=== PATIENT | male | born 1995 | race Two or more races ===

== ENCOUNTER 2018-09-22 20:47 | Inpatient (IN) | payer SELFPAY ==
[~2018-09-22] VITALS: Ht 160 cm; Wt 101.6 kg
[2018-09-22] MEDS ORDERED: IBUPROFEN 200 MG TABLET. PO ONE (22:30)
[2018-09-22] MEDS ORDERED: ACETAMINOPHEN 500 MG TABLET PO ONE (22:30)
[2018-09-22] MEDS ORDERED: ALBUTEROL SULFATE 2.5 MG/3 ML NEBU. NEB ONE (22:30)
[2018-09-22] MEDS ORDERED: IV NORMAL SALINE 1000ML BAG 1,000 ML IV ONE (23:00)
[2018-09-22 23:33] LABS: BILIRUBIN,URINE NEGATIVE (NEG); CLARITY,URINE CLEAR; COLOR,URINE YELLOW; NITRITE,URINE NEGATIVE (NEG); PROTEIN,URINE NEGATIVE (NEG-TRACE); UROBILINOGEN,URINE 0.2 mg/dL (0.2 mg/dL)
[2018-09-22 23:35] LABS: BACTERIA,URINE 0 /HPF (0-FEW); RBC,URINE 0 /HPF (0-2); WBC,URINE 0 /HPF (0-4)
[2018-09-22 23:54] LABS: BASO # 0.1 x10^3/uL (0.0-0.2); BASO % 1 % (0-3); EOS # 0.6 x10^3/uL (0.0-0.7); EOS % 5 % (0-3); HEMATOCRIT 41.7 % (39.0-53.0); HEMOGLOBIN 14.2 g/dL (13.0-17.5); LYMPH # 2.3 x10^3/uL (1.0-4.8); LYMPH % 21 % (24-48); MEAN CORPUSCULAR HEMOGLOBIN 31 pg (25-35); MEAN CORPUSCULAR HGB CONC 34 g/dL (31-37); MEAN CORPUSCULAR VOLUME 90 fL (79-100); MONO # 0.6 x10^3/uL (0.0-1.1); MONO % 6 % (0-9); NEUT # 7.1 x10^3uL (1.8-7.7); NEUT % 67 % (31-73); PLATELET COUNT 135 x10^3/uL (140-400); RED BLOOD COUNT 4.64 x10^6/uL (4.30-5.70); RED CELL DISTRIBUTION WIDTH 12.9 % (11.5-14.5); WHITE BLOOD COUNT 10.7 x10^3/uL (4.0-11.0)
[2018-09-23] VITALS (7 sets, daily range): BP systolic 115–142; BP diastolic 58–83
[2018-09-23] MEDS ORDERED: cefTRIAXone IV Push 1 GM VIAL. IVP ONE
[2018-09-23] MEDS ORDERED: DOXYCYCLINE HYCLATE 100 MG in IV DEXTROSE 5% 100ML 100 ML IV ONE ×2
[2018-09-23 00:02] LABS: BARBITURATES NEG (NEG); BENZODIAZEPINES NEG (NEG); CANNABINOIDS NEG (NEG); COCAINE NEG (NEG); METHADONE NEG (NEG); OPIATES NEG (NEG); PHENCYCLIDINE NEG (NEG)
[2018-09-23 00:02] LABS: PROTHROMBIN TIME PATIENT 13.7 SEC (11.7-14.0)
[2018-09-23 00:03] LABS: CALCIUM 8.9 mg/dL (8.5-10.1); CREATININE 1.4 mg/dL (0.7-1.3); GFR 62.8; POTASSIUM 3.6 mmol/L (3.5-5.1)
--- NOTE | 2018-09-23 00:04 | PHYS DOC ---
Past Medical History Past Medical History: No Pertinent History (NAHUM NORIEGA APRN) Past Surgical History: No Surgical History (NAHUM NORIEGA APRN) Alcohol Use: None Drug Use: None (NAHUM NORIEGA APRN) Adult General Chief Complaint Chief Complaint: COUGH HPI HPI Patient is a 23 year old male who presents to the emergency Department today with complaints of a productive cough with yellow sputum, fever up to 100, and body aches for the last month. Patient states his symptoms have been worse over the last few days. He denies any nausea, vomiting, diarrhea, ear pain, sore throat, back pain, abdominal pain, or rash. Patient denies any recent travel. He reports shortness of breath with activity, he denies shortness of breath at rest. (NAHUM NORIEGA APRN) Review of Systems Review of Systems Constitutional: Fever and body aches Eyes: Denies change in visual acuity, redness, or eye pain [] HENT: Denies nasal congestion or sore throat [] Respiratory: See history of present illness Cardiovascular: No additional information not addressed in HPI [] GI: Denies abdominal pain, nausea, vomiting, or diarrhea [] : Denies dysuria or hematuria [] Musculoskeletal: Reports body aches Integument: Denies rash or skin lesions [] Neurologic: Denies headache, focal weakness or sensory changes [] Complete systems were reviewed and found to be within normal limits, except as documented in this note. (NAHUM NORIEGA APRN) Current Medications Current Medications Current Medications Medications (Trade) Dose Ordered Sig/Alfredo Start Time Stop Time Status Last Admin Dose Admin Acetaminophen (Tylenol) 1,000 mg 1X ONCE 09/22/18 22:30 09/22/18 22:31 DC 09/22/18 22:20 1,000 MG Albuterol Sulfate (Ventolin Neb Soln) 2.5 mg 1X ONCE 09/22/18 22:30 09/22/18 22:31 DC 09/22/18 22:34 2.5 MG Ibuprofen (Motrin) 600 mg 1X ONCE 09/22/18 22:30 09/22/18 22:31 DC 09/22/18 22:20 600 MG Sodium Chloride 1,000 ml @ 1,000 mls/hr 1X ONCE 09/22/18 23:00 09/22/18 23:59 DC 09/22/18 22:48 1,000 MLS/HR (PAULETTE MEDINA MD) Allergies Allergies Allergies Coded Allergies Type Severity Reaction Last Updated Verified No Known Drug Allergies 09/22/18 No (PAULETTE MEDINA MD) Physical Exam Physical Exam Constitutional: Well developed, well nourished, no acute distress, ill appearance HENT: Normocephalic, atraumatic, bilateral external ears normal, bilateral TMs normal, posterior pharynx normal, oropharynx moist, no oral exudates, nose normal. [] Eyes: PERRLA, conjunctiva normal, no discharge. [] Neck: Normal range of motion, no tenderness, supple, no stridor. [] Cardiovascular:Heart rate tachycardic rhythm, no murmur [] Lungs & Thorax: Bilateral breath sounds clear to auscultation in upper lobes, diminished in bases bilat, no retractions, non-tender [] Abdomen: soft, no tenderness, no masses, no pulsatile masses. [] Skin: Hot, Flushed, diaphoretic Extremities: No cyanosis, no clubbing, ROM intact, no edema. [] Neurologic: Alert and oriented X 3, no focal deficits noted. [] Psychologic: Affect normal, judgement normal, mood normal. [] (NAHUM NORIEGA APRN) Current Patient Data Vital Signs Vital Signs Date Time Temp Pulse Resp B/P (MAP) Pulse Ox O2 Delivery O2 Flow Rate FiO2 09/22/18 23:46 101.7 101.7 09/22/18 23:45 114 26 115/58 (77) 92 Room Air (PAULETTE MEDINA MD) Lab Values Laboratory Tests Test 09/22/18 21:00 09/22/18 21:15 Urine Collection Type Unknown Urine Color Yellow Urine Clarity Clear Urine pH 7.0 Urine Specific [place] 1.010 Urine Protein Negative mg/dL (NEG-TRACE) Urine Glucose (UA) Negative mg/dL (NEG) Urine Ketones (Stick) Negative mg/dL (NEG) Urine Blood Negative (NEG) Urine Nitrite Negative (NEG) Urine Bilirubin Negative (NEG) Urine Urobilinogen Dipstick 0.2 mg/dL (0.2 mg/dL) Urine Leukocyte Esterase Negative (NEG) Urine RBC 0 /HPF (0-2) Urine WBC 0 /HPF (0-4) Urine Bacteria 0 /HPF (0-FEW) Urine Opiates Screen Neg (NEG) Urine Methadone Screen Neg (NEG) Urine Barbiturates Neg (NEG) Urine Phencyclidine Screen Neg (NEG) Urine Amphetamine/Methamphetamine Neg (NEG) Urine Benzodiazepines Screen Neg (NEG) Urine Cocaine Screen Neg (NEG) Urine Cannabinoids Screen Neg (NEG) Urine Ethyl Alcohol Neg (NEG) White Blood Count 10.7 x10^3/uL (4.0-11.0) Red Blood Count 4.64 x10^6/uL (4.30-5.70) Hemoglobin 14.2 g/dL (13.0-17.5) Hematocrit 41.7 % (39.0-53.0) Mean Corpuscular Volume 90 fL (79-100) Mean Corpuscular Hemoglobin 31 pg (25-35) Mean Corpuscular Hemoglobin Concent 34 g/dL (31-37) Red Cell Distribution Width 12.9 % (11.5-14.5) Platelet Count 135 x10^3/uL (140-400) L Neutrophils (%) (Auto) 67 % (31-73) Lymphocytes (%) (Auto) 21 % (24-48) L Monocytes (%) (Auto) 6 % (0-9) Eosinophils (%) (Auto) 5 % (0-3) H Basophils (%) (Auto) 1 % (0-3) Neutrophils # (Auto) 7.1 x10^3uL (1.8-7.7) Lymphocytes # (Auto) 2.3 x10^3/uL (1.0-4.8) Monocytes # (Auto) 0.6 x10^3/uL (0.0-1.1) Eosinophils # (Auto) 0.6 x10^3/uL (0.0-0.7) Basophils # (Auto) 0.1 x10^3/uL (0.0-0.2) Platelet Estimate Decreased (ADEQUATE) Giant Platelets Occ Prothrombin Time 13.7 SEC (11.7-14.0) Prothrombin Time INR 1.1 (0.8-1.1) Sodium Level 140 mmol/L (136-145) Potassium Level 3.6 mmol/L (3.5-5.1) Chloride Level 103 mmol/L (98-107) Carbon Dioxide Level 26 mmol/L (21-32) Anion Gap 11 (6-14) Blood Urea Nitrogen 12 mg/dL (8-26) Creatinine 1.4 mg/dL (0.7-1.3) H Estimated GFR (Cockcroft-Gault) 62.8 BUN/Creatinine Ratio 9 (6-20) Glucose Level 109 mg/dL (70-99) H Calcium Level 8.9 mg/dL (8.5-10.1) Total Bilirubin 0.8 mg/dL (0.2-1.0) Aspartate Amino Transferase (AST) 19 U/L (15-37) Alanine Aminotransferase (ALT) 38 U/L (16-63) Alkaline Phosphatase 50 U/L (46-116) Total Protein 8.2 g/dL (6.4-8.2) Albumin 3.9 g/dL (3.4-5.0) Albumin/Globulin Ratio 0.9 (1.0-1.7) L Laboratory Tests 09/22/18 21:15 Laboratory Tests 09/22/18 21:15 (PAULETTE MEDINA MD) EKG EKG [] (NAHUM NORIEGA APRN) Radiology/Procedures Radiology/Procedures CXR no Acute findings probable left retrocardiac streakiness read by Dr. Medina (NAHUM NORIEGA APRN) Course & Med Decision Making Course & Med Decision Making Pertinent Labs and Imaging studies reviewed. (See chart for details) [] (NAHUM NORIEGA APRN) Course & Med Decision Making I saw and evaluated the patient, patient was mildly tachypneic heart rate was mostly in the 120s while in the emergency room he was getting IV fluids and Tylenol but he was remaining tachycardic she really looked dyspneic to me chest x-ray possible retrocardiac opacity. Patient was treated for pneumonia and given the tachypnea and tachycardia we opted to admit him to the hospitalist service for further evaluation and management. Patient denied any recent travel denied any history of IV drug use nevertheless hopefully with IV fluids and antibiotics to improve (PAULETTE MEDINA MD) Dragon Disclaimer Dragon Disclaimer This electronic medical record was generated, in whole or in part, using a voice recognition dictation system. (NAHUM NORIEGA APRN) Departure Departure Impression: Primary Impression: Pneumonia Disposition: ADMITTED INPATIENT Admitting Physician: LOYD (PAULETTE MEDINA MD) Condition: STABLE Referrals: NO PCP (PCP) NAHUM NORIEGA APRN Sep 23, 2018 00:04 PAULETTE MEDINA MD Sep 23, 2018 01:48
[2018-09-23 00:08] LABS: AMPHETAMINE/METHAMPHETAMINE NEG (NEG)
[2018-09-23 00:09] LABS: ALBUMIN 3.9 g/dL (3.4-5.0); ALBUMIN/GLOBULIN RATIO 0.9 (1.0-1.7); TOTAL BILIRUBIN 0.8 mg/dL (0.2-1.0); TOTAL PROTEIN 8.2 g/dL (6.4-8.2)
[2018-09-23] MEDS ORDERED: IV NORMAL SALINE 1000ML BAG 1,000 ML IV SCH ×2 (00:15)
[2018-09-23 00:46] LABS: PLT ESTIMATE DECREASED (ADEQUATE)
--- NOTE | 2018-09-23 01:04 | NUR ---
The patient, ОЛЬГА CROOKS, 23 y/o, M admitted by EDELMIRA FRITZ MD, was given written information regarding hospital policies, unit procedures and contact persons. Valuables were checked and left with the patient.
[2018-09-23] MEDS: ACETAMINOPHEN 325 MG TABLET. PO PRN ×2 (01:51→13:58)
--- NOTE | 2018-09-23 05:54 | RAD ---
Chest radiograph 09/22/2018 8:55 PM INDICATION: Fever COMPARISON: None available TECHNIQUE: Portable upright frontal view of the chest is provided. FINDINGS: The cardiomediastinal silhouette is within normal limits. There are no pleural effusions. There is no pulmonary vascular congestion. There is no pneumothorax. Patchy interstitial opacities are noted within the suprahilar region bilaterally. No significant osseous abnormality is identified. IMPRESSION: Bilateral suprahilar patchy interstitial changes may reflect interstitial pneumonitis. Electronically signed by: Gala Cr MD (09/23/2018 5:51 AM) [facility]
--- NOTE | 2018-09-23 11:42 | PDOC1 ---
History and Physical Date of Admission Date of Admission DATE: 09/23/18 TIME: 11:42 Identification/Chief Complaint Chief Complaint seen in er , 23 year old male who presents to the emergency Department with complaints of a productive cough with yellow sputum, fever up to 100, and body aches for the last month. Patient states his symptoms have been worse over the last few days. He denies any nausea, vomiting, diarrhea, ear pain, Past Medical History Cardiovascular: No pertinent hx Pulmonary: No pertinent hx GI: No pertinent hx Family History Family History: Hypertension Social History Smoke: <1 pack per day ALCOHOL: occassional Drugs: None Current Medications Current Medications Current Medications Acetaminophen (Tylenol) 1,000 mg 1X ONCE PO Last administered on 09/22/18at 22:20; Start 09/22/18 at 22:30; Stop 09/22/18 at 22:31; Status DC Albuterol Sulfate (Ventolin Neb Soln) 2.5 mg 1X ONCE NEB Last administered on 09/22/18at 22:34; Start 09/22/18 at 22:30; Stop 09/22/18 at 22:31; Status DC Ibuprofen (Motrin) 600 mg 1X ONCE PO Last administered on 09/22/18at 22:20; Start 09/22/18 at 22:30; Stop 09/22/18 at 22:31; Status DC Sodium Chloride 1,000 ml @ 1,000 mls/hr 1X ONCE IV Last administered on 09/22/18at 22:48; Start 09/22/18 at 23:00; Stop 09/22/18 at 23:59; Status DC Sodium Chloride 1,000 ml @ 1,000 mls/hr Q1H IV Last administered on 09/23/18at 00:15; Start 09/23/18 at 00:00; Stop 09/23/18 at 01:41; Status DC Ceftriaxone Sodium (Rocephin) 1 gm 1X ONCE IVP Last administered on 09/22/18at 23:56; Start 09/23/18 at 00:00; Stop 09/23/18 at 00:01; Status DC Doxycycline Hyclate 100 mg/ Dextrose 100 ml @ 50 mls/hr 1X ONCE IV Last administered on 09/23/18at 00:01; Start 09/23/18 at 00:00; Stop 09/23/18 at 01:59; Status DC Sodium Chloride 1,000 ml @ 125 mls/hr Q8H IV Last administered on 09/23/18at 01:51; Start 09/23/18 at 00:15; Stop 09/23/18 at 00:16; Status DC Acetaminophen (Tylenol) 650 mg PRN Q4HRS PRN PO FEVER Last administered on 09/23/18at 01:51; Start 09/23/18 at 00:00; Stop 09/23/18 at 23:59 Allergies Allergies: Coded Allergies: No Known Drug Allergies (Unverified , 09/22/18) ROS Review of System Review of Systems Review of Systems Constitutional: Fever and body aches Eyes: Denies change in visual acuity, redness, or eye pain [] HENT: Denies nasal congestion or sore throat [] Respiratory: See history of present illness Cardiovascular: No additional information not addressed in HPI [] GI: Denies abdominal pain, nausea, vomiting, or diarrhea [] : Denies dysuria or hematuria [] Musculoskeletal: Reports body aches Integument: Denies rash or skin lesions [] Neurologic: Denies headache, focal weakness or sensory changes [] 14 pt systems were reviewed and found to be within normal limits, except as documented . General: YES: Chills, Fatigue Gastrointestinal: No Nausea, No Vomiting, No Abdominal Pain, No Diarrhea, No Constipation, No Melena, No Hematochezia, No Other Musculoskeletal: No Gait Disturbance, No Joint Pain, No Joint Stiffness, No Joint Swelling, No Muscle Pain, No Muscular Weakness, No Pain In:, No Swelling In:, No Other Physical Exam Physical Exam Physical Exam Physical Exam Constitutional: Well developed, well nourished, no acute distress, ill appearance HENT: Normocephalic, atraumatic, bilateral external ears normal, bilateral TMs normal, posterior pharynx normal, oropharynx moist, no oral exudates, nose normal. [] Eyes: PERRLA, conjunctiva normal, no discharge. [] Neck: Normal range of motion, no tenderness, supple, no stridor. [] Cardiovascular:Heart rate tachycardic rhythm, no murmur [] Lungs & Thorax: Bilateral breath sounds clear to auscultation in upper lobes, diminished in bases bilat, no retractions, non-tender [] Abdomen: soft, no tenderness, no masses, no pulsatile masses. [] Skin: Hot, Flushed, diaphoretic Extremities: No cyanosis, no clubbing, ROM intact, no edema. [] Neurologic: Alert and oriented X 3, no focal deficits noted. [] Psychologic: Affect normal, judgement normal, mood normal. [] General: Alert, Oriented X3, Cooperative, mild distress HEENT: EOMI, Mucous membr. moist/pink Heart: S1S2, RRR, no thrills, no gallops, no murmurs Abdomen: Normal bowel sounds, Soft Rectal Exam: not examined PELVIC: Examination not indicated Extremities: No cyanosis Neuro: Normal speech, Cranial nerves 3-12 NL Psych/Mental Status: Mental status NL, Mood NL Vitals Vitals Vital Signs Date Time Temp Pulse Resp B/P (MAP) Pulse Ox O2 Delivery O2 Flow Rate FiO2 09/23/18 08:00 Room Air 09/23/18 07:00 96.8 71 18 127/81 (96) 93 96.8 Labs Labs Laboratory Tests Test 09/22/18 21:00 09/22/18 21:15 09/22/18 23:55 Urine Collection Type Unknown Urine Color Yellow Urine Clarity Clear Urine pH 7.0 Urine Specific [place] 1.010 Urine Protein Negative mg/dL (NEG-TRACE) Urine Glucose (UA) Negative mg/dL (NEG) Urine Ketones (Stick) Negative mg/dL (NEG) Urine Blood Negative (NEG) Urine Nitrite Negative (NEG) Urine Bilirubin Negative (NEG) Urine Urobilinogen Dipstick 0.2 mg/dL (0.2 mg/dL) Urine Leukocyte Esterase Negative (NEG) Urine RBC 0 /HPF (0-2) Urine WBC 0 /HPF (0-4) Urine Bacteria 0 /HPF (0-FEW) Urine Opiates Screen Neg (NEG) Urine Methadone Screen Neg (NEG) Urine Barbiturates Neg (NEG) Urine Phencyclidine Screen Neg (NEG) Urine Amphetamine/Methamphetamine Neg (NEG) Urine Benzodiazepines Screen Neg (NEG) Urine Cocaine Screen Neg (NEG) Urine Cannabinoids Screen Neg (NEG) Urine Ethyl Alcohol Neg (NEG) White Blood Count 10.7 x10^3/uL (4.0-11.0) Red Blood Count 4.64 x10^6/uL (4.30-5.70) Hemoglobin 14.2 g/dL (13.0-17.5) Hematocrit 41.7 % (39.0-53.0) Mean Corpuscular Volume 90 fL (79-100) Mean Corpuscular Hemoglobin 31 pg (25-35) Mean Corpuscular Hemoglobin Concent 34 g/dL (31-37) Red Cell Distribution Width 12.9 % (11.5-14.5) Platelet Count 135 x10^3/uL (140-400) Neutrophils (%) (Auto) 67 % (31-73) Lymphocytes (%) (Auto) 21 % (24-48) Monocytes (%) (Auto) 6 % (0-9) Eosinophils (%) (Auto) 5 % (0-3) Basophils (%) (Auto) 1 % (0-3) Neutrophils # (Auto) 7.1 x10^3uL (1.8-7.7) Lymphocytes # (Auto) 2.3 x10^3/uL (1.0-4.8) Monocytes # (Auto) 0.6 x10^3/uL (0.0-1.1) Eosinophils # (Auto) 0.6 x10^3/uL (0.0-0.7) Basophils # (Auto) 0.1 x10^3/uL (0.0-0.2) Platelet Estimate Decreased (ADEQUATE) Giant Platelets Occ Prothrombin Time 13.7 SEC (11.7-14.0) Prothromb Time International Ratio 1.1 (0.8-1.1) Sodium Level 140 mmol/L (136-145) Potassium Level 3.6 mmol/L (3.5-5.1) Chloride Level 103 mmol/L (98-107) Carbon Dioxide Level 26 mmol/L (21-32) Anion Gap 11 (6-14) Blood Urea Nitrogen 12 mg/dL (8-26) Creatinine 1.4 mg/dL (0.7-1.3) Estimated GFR (Cockcroft-Gault) 62.8 BUN/Creatinine Ratio 9 (6-20) Glucose Level 109 mg/dL (70-99) Calcium Level 8.9 mg/dL (8.5-10.1) Total Bilirubin 0.8 mg/dL (0.2-1.0) Aspartate Amino Transf (AST/SGOT) 19 U/L (15-37) Alanine Aminotransferase (ALT/SGPT) 38 U/L (16-63) Alkaline Phosphatase 50 U/L (46-116) Total Protein 8.2 g/dL (6.4-8.2) Albumin 3.9 g/dL (3.4-5.0) Albumin/Globulin Ratio 0.9 (1.0-1.7) Lactic Acid Level 1.2 mmol/L (0.4-2.0) Laboratory Tests Test 09/22/18 21:00 09/22/18 21:15 09/22/18 23:55 Urine Collection Type Unknown Urine Color Yellow Urine Clarity Clear Urine pH 7.0 Urine Specific [place] 1.010 Urine Protein Negative mg/dL (NEG-TRACE) Urine Glucose (UA) Negative mg/dL (NEG) Urine Ketones (Stick) Negative mg/dL (NEG) Urine Blood Negative (NEG) Urine Nitrite Negative (NEG) Urine Bilirubin Negative (NEG) Urine Urobilinogen Dipstick 0.2 mg/dL (0.2 mg/dL) Urine Leukocyte Esterase Negative (NEG) Urine RBC 0 /HPF (0-2) Urine WBC 0 /HPF (0-4) Urine Bacteria 0 /HPF (0-FEW) Urine Opiates Screen Neg (NEG) Urine Methadone Screen Neg (NEG) Urine Barbiturates Neg (NEG) Urine Phencyclidine Screen Neg (NEG) Urine Amphetamine/Methamphetamine Neg (NEG) Urine Benzodiazepines Screen Neg (NEG) Urine Cocaine Screen Neg (NEG) Urine Cannabinoids Screen Neg (NEG) Urine Ethyl Alcohol Neg (NEG) White Blood Count 10.7 x10^3/uL (4.0-11.0) Red Blood Count 4.64 x10^6/uL (4.30-5.70) Hemoglobin 14.2 g/dL (13.0-17.5) Hematocrit 41.7 % (39.0-53.0) Mean Corpuscular Volume 90 fL (79-100) Mean Corpuscular Hemoglobin 31 pg (25-35) Mean Corpuscular Hemoglobin Concent 34 g/dL (31-37) Red Cell Distribution Width 12.9 % (11.5-14.5) Platelet Count 135 x10^3/uL (140-400) Neutrophils (%) (Auto) 67 % (31-73) Lymphocytes (%) (Auto) 21 % (24-48) Monocytes (%) (Auto) 6 % (0-9) Eosinophils (%) (Auto) 5 % (0-3) Basophils (%) (Auto) 1 % (0-3) Neutrophils # (Auto) 7.1 x10^3uL (1.8-7.7) Lymphocytes # (Auto) 2.3 x10^3/uL (1.0-4.8) Monocytes # (Auto) 0.6 x10^3/uL (0.0-1.1) Eosinophils # (Auto) 0.6 x10^3/uL (0.0-0.7) Basophils # (Auto) 0.1 x10^3/uL (0.0-0.2) Platelet Estimate Decreased (ADEQUATE) Giant Platelets Occ Prothrombin Time 13.7 SEC (11.7-14.0) Prothromb Time International Ratio 1.1 (0.8-1.1) Sodium Level 140 mmol/L (136-145) Potassium Level 3.6 mmol/L (3.5-5.1) Chloride Level 103 mmol/L (98-107) Carbon Dioxide Level 26 mmol/L (21-32) Anion Gap 11 (6-14) Blood Urea Nitrogen 12 mg/dL (8-26) Creatinine 1.4 mg/dL (0.7-1.3) Estimated GFR (Cockcroft-Gault) 62.8 BUN/Creatinine Ratio 9 (6-20) Glucose Level 109 mg/dL (70-99) Calcium Level 8.9 mg/dL (8.5-10.1) Total Bilirubin 0.8 mg/dL (0.2-1.0) Aspartate Amino Transf (AST/SGOT) 19 U/L (15-37) Alanine Aminotransferase (ALT/SGPT) 38 U/L (16-63) Alkaline Phosphatase 50 U/L (46-116) Total Protein 8.2 g/dL (6.4-8.2) Albumin 3.9 g/dL (3.4-5.0) Albumin/Globulin Ratio 0.9 (1.0-1.7) Lactic Acid Level 1.2 mmol/L (0.4-2.0) Images Images Chest radiograph 09/22/2018 8:55 PM INDICATION: Fever COMPARISON: None available TECHNIQUE: Portable upright frontal view of the chest is provided. FINDINGS: The cardiomediastinal silhouette is within normal limits. There are no pleural effusions. There is no pulmonary vascular congestion. There is no pneumothorax. Patchy interstitial opacities are noted within the suprahilar region bilaterally. No significant osseous abnormality is identified. IMPRESSION: Bilateral suprahilar patchy interstitial changes may reflect interstitial pneumonitis. Electronically signed by: Елена Cr MD (09/23/2018 5:51 AM) [facility] DICTATED and SIGNED BY: ЕЛЕНА CR MD DATE: 09/23/18 0551 VTE Prophylaxis Ordered VTE Prophylaxis Devices: Yes VTE Pharmacological Prophylaxi: Yes Assessment/Plan Assessment/Plan IMPRESSION: Bilateral suprahilar patchy interstitial changes may reflect interstitial pneumonitis community acquired pneumonia. fever sepsis plan admit blood cultures emperic iv antibiotics urine for strep pneumo ag dvt prophylaxis puml consult iv zosyn doxy 100mg po bid 58 min pt exam, chart review, > 50% of time spent with exam, chart review, pt care coordination, disease process education EDELMIRA FRITZ MD Sep 23, 2018 11:42
[2018-09-23] MEDS ORDERED: IPRATRPIUM/ALBUTEROL 0.5/2.5MG 3 ML NEBU. NEB ONE (12:45)
[2018-09-23] MEDS: guaiFENesin/CODEINE 100mg/10mg 5 ML LIQUID PO PRN ×2 (13:59→21:54)
[2018-09-23] MEDS: IPRATRPIUM/ALBUTEROL 0.5/2.5MG 3 ML NEBU. NEB SCH ×2 (14:34→20:41)
[2018-09-23] MEDS ORDERED: LORazepam 0.5 MG TABLET PO PRN (15:15)
[2018-09-23] MEDS ORDERED: ALBUTEROL SULFATE 2.5 MG/3 ML NEBU. NEB PRN (15:15)
[2018-09-23] MEDS ORDERED: ACETAMINOPHEN 325 MG TABLET. PO PRN (15:15)
[2018-09-23] MEDS ORDERED: guaiFENesin ORAL 200 MG/10 ML LIQUID. PO PRN (15:15)
[2018-09-23] MEDS ORDERED: DOCUSATE SODIUM 100 MG CAPSULE. PO PRN (15:15)
[2018-09-23] MEDS ORDERED: ZOLPIDEM 5 MG TABLET. PO PRN (15:15)
[2018-09-23] MEDS ORDERED: 0.9 % SODIUM CHLORIDE 10 ML DISP.SYRIN. IV PRN (15:15)
[2018-09-23] MEDS ORDERED: ONDANSETRON PF 4 MG/2 ML VIAL. IV PRN (15:15)
[2018-09-23] MEDS ORDERED: MAG HYDROX/ALUMINUM HYD/SIMETH 30 ML ORAL.SUSP PO PRN (15:15)
[2018-09-23] MEDS ORDERED: cloNIDine HCL 0.1 MG TABLET PO PRN (15:15)
[2018-09-23] MEDS: PIPERACILLIN/TAZOBACTAM 3.375 GM in IV NORMAL SALINE 50ML 50 ML IV SCH (15:57)
[2018-09-23] MEDS ORDERED: ENOXAPARIN 40 MG/0.4 ML SYRINGE. SQ SCH (16:00)
--- NOTE | 2018-09-23 16:37 | PDOC2 ---
Pulmonary Consult. Reason for Consult/Chief Com: Interim Pulmonary Consult: Full consult dictated. IMP:1. Acute Pneumonia (likely "atypical' such as mycoplasma, primary immune disorder of eosinophilia and infiltrates (such as eosinophilic pneumonia) less likely) 2. Atopic disease with bronchospasm Agree with present antibiotics (emili. doxy) and inhaled bronchodilators W/U for atypical pneumonias and immune disorder only if he fails to respond PE: Vital Signs Date Time Temp Pulse Resp B/P (MAP) Pulse Ox O2 Delivery O2 Flow Rate FiO2 09/23/18 14:36 96 Room Air 09/23/18 14:00 101.5 101.5 09/23/18 11:00 80 16 125/83 (97) LEIGH TORREZ MD Sep 23, 2018 16:37
--- NOTE | 2018-09-23 16:55 | CONS ---
DATE OF CONSULTATION: HISTORY OF PRESENT ILLNESS: The patient is a 23-year-old male who is admitted through the Emergency Department for pneumonia. The patient notes that he does have a background of seasonal rhinitis and coughing if he is in [place] environments. He has never been diagnosed with any atopic disease. This has not been severe. He was in his usual state of health until approximately one month ago. He notes that over the past month, he has had episodic, subjective fevers and fatigue. These would last for a couple of days to be followed by feeling normal for a few days. He has felt particularly bad for the past several days. He has the subjective fevers. He has developed a cough productive of clear or yellow sputum. He also has generalized body aches during this time. PAST MEDICAL HISTORY: Negative. He has never been hospitalized or taken medications chronically. FAMILY HISTORY: Negative for pulmonary disease. SOCIAL HISTORY: He does have a modest tobacco smoke exposure history, but quit smoking three years ago. He works for [employer]. He has recently moved to [place], [place] from [place], [place]. REVIEW OF SYSTEMS: A 12-point review of systems was obtained. He does note that he occasionally coughs so hard that he will throw up. Otherwise, his 12-point review of systems was negative. PHYSICAL EXAMINATION: VITAL SIGNS: He has a temperature of 101.5. His heart rate is 80 per minute and regular. His oxygen saturation is 96% on room air at rest. His respiratory rate is 18 per minute and nonlabored. HEENT: Unremarkable. NECK: There is no JVD or lymphadenopathy. CHEST: He does have equal breath sounds. He does have bilateral rales throughout the lungs. He also has scattered wheezing. CARDIOVASCULAR: He has a regular rate and rhythm without murmur or gallop. ABDOMEN: Soft, without masses or organomegaly. EXTREMITIES: There is no cyanosis, clubbing or edema. NEUROLOGIC: He is alert, oriented and appropriate. Cranial nerves, motor, and coordination are all grossly intact. LABORATORY DATA: He has a chest x-ray that was done today that reveals a subtle, bilateral infiltrate. His CBC was remarkable for a white count that was elevated at 10,700. Of note, he had elevated eosinophils at 5%. IMPRESSION: Fever, bilateral infiltrates and cough, most consistent with community-acquired pneumonia. In particular, the diffuse infiltrates and given his age, I would be concerned about "atypical" pneumonias such as mycoplasma. I do believe that this is complicated by an atopic picture causing his bronchospasm and eosinophilia. I believe that a primary immune related disorder, such as eosinophilic pneumonia or Churg-Morris vasculitis, is far less likely, but not impossible. If he does not respond to the therapy below, it would be worth reconsidering diseases that cause infiltrates and eosinophilia. PLAN: I agree with his antibiotics, especially the doxycycline. I would not recommend specific tests for mycoplasma at this point in time as he should respond to doxycycline. Obviously, if he does not respond, one would readdress the diagnostic studies. I agree with the inhaled bronchodilators provided to him. I suspect he will get symptomatic relief with those. Once again, I expect the patient to respond to the therapy that has been started, but we will follow along with you to make sure. Thank you for referring this nice gentleman to us. If you have questions, please do not hesitate to contact me. LEIGH TORREZ MD DR: PREETHI/bhanu JOB#: [id number] / [id number]
[2018-09-23] MEDS: LACTOBACILLUS RHAMNOSUS GG 1 CAPSULE. PO SCH (21:53)
[2018-09-23] MEDS: DOXYCYCLINE HYCLATE 100 MG TABLET PO SCH (21:53)
[2018-09-24] MEDS: PIPERACILLIN/TAZOBACTAM 3.375 GM in IV NORMAL SALINE 50ML 50 ML IV SCH ×3 (00:25→12:47)
[2018-09-24 03:00] VITALS: BP 129/85
[2018-09-24] MEDS: IPRATRPIUM/ALBUTEROL 0.5/2.5MG 3 ML NEBU. NEB SCH ×2 (06:19→11:00)
[2018-09-24 07:00] VITALS: BP 119/61
[2018-09-24] MEDS: LACTOBACILLUS RHAMNOSUS GG 1 CAPSULE. PO SCH (09:13)
[2018-09-24] MEDS: DOXYCYCLINE HYCLATE 100 MG TABLET PO SCH (09:13)
--- NOTE | 2018-09-24 09:13 | PDOC ---
PULMONARY PROGRESS NOTES Vitals Vital Signs Date Time Temp Pulse Resp B/P (MAP) Pulse Ox O2 Delivery O2 Flow Rate FiO2 09/24/18 07:00 98.3 67 16 119/61 (80) 100 Room Air 98.3 Labs Laboratory Tests Test 09/22/18 21:00 09/22/18 21:15 09/22/18 23:55 09/23/18 18:00 Urine Collection Type Unknown Urine Color Yellow Urine Clarity Clear Urine pH 7.0 Urine Specific [place] 1.010 Urine Protein Negative mg/dL (NEG-TRACE) Urine Glucose (UA) Negative mg/dL (NEG) Urine Ketones (Stick) Negative mg/dL (NEG) Urine Blood Negative (NEG) Urine Nitrite Negative (NEG) Urine Bilirubin Negative (NEG) Urine Urobilinogen Dipstick 0.2 mg/dL (0.2 mg/dL) Urine Leukocyte Esterase Negative (NEG) Urine RBC 0 /HPF (0-2) Urine WBC 0 /HPF (0-4) Urine Bacteria 0 /HPF (0-FEW) Urine Opiates Screen Neg (NEG) Urine Methadone Screen Neg (NEG) Urine Barbiturates Neg (NEG) Urine Phencyclidine Screen Neg (NEG) Urine Amphetamine/Methamphetamine Neg (NEG) Urine Benzodiazepines Screen Neg (NEG) Urine Cocaine Screen Neg (NEG) Urine Cannabinoids Screen Neg (NEG) Urine Ethyl Alcohol Neg (NEG) White Blood Count 10.7 x10^3/uL (4.0-11.0) Red Blood Count 4.64 x10^6/uL (4.30-5.70) Hemoglobin 14.2 g/dL (13.0-17.5) Hematocrit 41.7 % (39.0-53.0) Mean Corpuscular Volume 90 fL (79-100) Mean Corpuscular Hemoglobin 31 pg (25-35) Mean Corpuscular Hemoglobin Concent 34 g/dL (31-37) Red Cell Distribution Width 12.9 % (11.5-14.5) Platelet Count 135 x10^3/uL (140-400) Neutrophils (%) (Auto) 67 % (31-73) Lymphocytes (%) (Auto) 21 % (24-48) Monocytes (%) (Auto) 6 % (0-9) Eosinophils (%) (Auto) 5 % (0-3) Basophils (%) (Auto) 1 % (0-3) Neutrophils # (Auto) 7.1 x10^3uL (1.8-7.7) Lymphocytes # (Auto) 2.3 x10^3/uL (1.0-4.8) Monocytes # (Auto) 0.6 x10^3/uL (0.0-1.1) Eosinophils # (Auto) 0.6 x10^3/uL (0.0-0.7) Basophils # (Auto) 0.1 x10^3/uL (0.0-0.2) Platelet Estimate Decreased (ADEQUATE) Giant Platelets Occ Prothrombin Time 13.7 SEC (11.7-14.0) Prothromb Time International Ratio 1.1 (0.8-1.1) Sodium Level 140 mmol/L (136-145) Potassium Level 3.6 mmol/L (3.5-5.1) Chloride Level 103 mmol/L (98-107) Carbon Dioxide Level 26 mmol/L (21-32) Anion Gap 11 (6-14) Blood Urea Nitrogen 12 mg/dL (8-26) Creatinine 1.4 mg/dL (0.7-1.3) Estimated GFR (Cockcroft-Gault) 62.8 BUN/Creatinine Ratio 9 (6-20) Glucose Level 109 mg/dL (70-99) Calcium Level 8.9 mg/dL (8.5-10.1) Total Bilirubin 0.8 mg/dL (0.2-1.0) Aspartate Amino Transf (AST/SGOT) 19 U/L (15-37) Alanine Aminotransferase (ALT/SGPT) 38 U/L (16-63) Alkaline Phosphatase 50 U/L (46-116) Total Protein 8.2 g/dL (6.4-8.2) Albumin 3.9 g/dL (3.4-5.0) Albumin/Globulin Ratio 0.9 (1.0-1.7) Lactic Acid Level 1.2 mmol/L (0.4-2.0) Group A Streptococcus Rapid Negative (NEGATIVE) Laboratory Tests Test 09/23/18 18:00 Group A Streptococcus Rapid Negative (NEGATIVE) ALYSON ROBERTS MD Sep 24, 2018 09:13
[2018-09-24 09:22] LABS: BASO # 0.1 x10^3/uL (0.0-0.2); BASO % 1 % (0-3); EOS # 0.6 x10^3/uL (0.0-0.7); EOS % 11 % (0-3); HEMATOCRIT 39.6 % (39.0-53.0); HEMOGLOBIN 13.5 g/dL (13.0-17.5); LYMPH # 2.5 x10^3/uL (1.0-4.8); LYMPH % 43 % (24-48); MEAN CORPUSCULAR HEMOGLOBIN 31 pg (25-35); MEAN CORPUSCULAR HGB CONC 34 g/dL (31-37); MEAN CORPUSCULAR VOLUME 90 fL (79-100); MONO # 0.5 x10^3/uL (0.0-1.1); MONO % 9 % (0-9); NEUT # 2.2 x10^3uL (1.8-7.7); NEUT % 37 % (31-73); PLATELET COUNT 126 x10^3/uL (140-400); RED BLOOD COUNT 4.42 x10^6/uL (4.30-5.70); RED CELL DISTRIBUTION WIDTH 13.2 % (11.5-14.5); WHITE BLOOD COUNT 5.9 x10^3/uL (4.0-11.0)
[2018-09-24 09:57] LABS: ALBUMIN 3.2 g/dL (3.4-5.0); ALBUMIN/GLOBULIN RATIO 0.8 (1.0-1.7); CALCIUM 8.7 mg/dL (8.5-10.1); CREATININE 1.4 mg/dL (0.7-1.3); GFR 62.8; POTASSIUM 3.5 mmol/L (3.5-5.1); TOTAL BILIRUBIN 0.5 mg/dL (0.2-1.0); TOTAL PROTEIN 7.3 g/dL (6.4-8.2)
[2018-09-24 11:00] VITALS: BP 133/84
[2018-09-24 12:10] LABS: PLT ESTIMATE ADEQUATE (ADEQUATE)
[2018-09-24] MEDS ORDERED: DOXY100T PO (12:11)
--- NOTE | 2018-09-24 15:11 | NUR ---
patient discharged home with family via private vehicle. meds and follow up reviewed. pt voiced understanding. IV removed w/ cath intact. pt stable upon dc.
--- NOTE | 2018-09-24 15:50 | PDOC3 ---
Discharge Summary Visit Information Date of Admission: Sep 22, 2018 Date of Discharge: Sep 24, 2018 Brief Hospital Course Allergies Allergies Coded Allergies Type Severity Reaction Last Updated Verified No Known Drug Allergies 09/22/18 No Vital Signs Vital Signs Date Time Temp Pulse Resp B/P (MAP) Pulse Ox O2 Delivery O2 Flow Rate FiO2 09/24/18 11:01 99 Room Air 09/24/18 11:00 98.0 93 14 133/84 (100) 98.0 Lab Results Laboratory Tests Test 09/22/18 21:00 09/22/18 21:15 09/22/18 23:55 09/23/18 18:00 Urine Collection Type Unknown Urine Color Yellow Urine Clarity Clear Urine pH 7.0 Urine Specific [place] 1.010 Urine Protein Negative mg/dL (NEG-TRACE) Urine Glucose (UA) Negative mg/dL (NEG) Urine Ketones (Stick) Negative mg/dL (NEG) Urine Blood Negative (NEG) Urine Nitrite Negative (NEG) Urine Bilirubin Negative (NEG) Urine Urobilinogen Dipstick 0.2 mg/dL (0.2 mg/dL) Urine Leukocyte Esterase Negative (NEG) Urine RBC 0 /HPF (0-2) Urine WBC 0 /HPF (0-4) Urine Bacteria 0 /HPF (0-FEW) Urine Opiates Screen Neg (NEG) Urine Methadone Screen Neg (NEG) Urine Barbiturates Neg (NEG) Urine Phencyclidine Screen Neg (NEG) Urine Amphetamine/Methamphetamine Neg (NEG) Urine Benzodiazepines Screen Neg (NEG) Urine Cocaine Screen Neg (NEG) Urine Cannabinoids Screen Neg (NEG) Urine Ethyl Alcohol Neg (NEG) White Blood Count 10.7 x10^3/uL (4.0-11.0) Red Blood Count 4.64 x10^6/uL (4.30-5.70) Hemoglobin 14.2 g/dL (13.0-17.5) Hematocrit 41.7 % (39.0-53.0) Mean Corpuscular Volume 90 fL (79-100) Mean Corpuscular Hemoglobin 31 pg (25-35) Mean Corpuscular Hemoglobin Concent 34 g/dL (31-37) Red Cell Distribution Width 12.9 % (11.5-14.5) Platelet Count 135 x10^3/uL (140-400) Neutrophils (%) (Auto) 67 % (31-73) Lymphocytes (%) (Auto) 21 % (24-48) Monocytes (%) (Auto) 6 % (0-9) Eosinophils (%) (Auto) 5 % (0-3) Basophils (%) (Auto) 1 % (0-3) Neutrophils # (Auto) 7.1 x10^3uL (1.8-7.7) Lymphocytes # (Auto) 2.3 x10^3/uL (1.0-4.8) Monocytes # (Auto) 0.6 x10^3/uL (0.0-1.1) Eosinophils # (Auto) 0.6 x10^3/uL (0.0-0.7) Basophils # (Auto) 0.1 x10^3/uL (0.0-0.2) Platelet Estimate Decreased (ADEQUATE) Giant Platelets Occ Prothrombin Time 13.7 SEC (11.7-14.0) Prothromb Time International Ratio 1.1 (0.8-1.1) Sodium Level 140 mmol/L (136-145) Potassium Level 3.6 mmol/L (3.5-5.1) Chloride Level 103 mmol/L (98-107) Carbon Dioxide Level 26 mmol/L (21-32) Anion Gap 11 (6-14) Blood Urea Nitrogen 12 mg/dL (8-26) Creatinine 1.4 mg/dL (0.7-1.3) Estimated GFR (Cockcroft-Gault) 62.8 BUN/Creatinine Ratio 9 (6-20) Glucose Level 109 mg/dL (70-99) Calcium Level 8.9 mg/dL (8.5-10.1) Total Bilirubin 0.8 mg/dL (0.2-1.0) Aspartate Amino Transf (AST/SGOT) 19 U/L (15-37) Alanine Aminotransferase (ALT/SGPT) 38 U/L (16-63) Alkaline Phosphatase 50 U/L (46-116) Total Protein 8.2 g/dL (6.4-8.2) Albumin 3.9 g/dL (3.4-5.0) Albumin/Globulin Ratio 0.9 (1.0-1.7) Lactic Acid Level 1.2 mmol/L (0.4-2.0) Group A Streptococcus Rapid Negative (NEGATIVE) Test 09/24/18 09:00 White Blood Count 5.9 x10^3/uL (4.0-11.0) Red Blood Count 4.42 x10^6/uL (4.30-5.70) Hemoglobin 13.5 g/dL (13.0-17.5) Hematocrit 39.6 % (39.0-53.0) Mean Corpuscular Volume 90 fL (79-100) Mean Corpuscular Hemoglobin 31 pg (25-35) Mean Corpuscular Hemoglobin Concent 34 g/dL (31-37) Red Cell Distribution Width 13.2 % (11.5-14.5) Platelet Count 126 x10^3/uL (140-400) Neutrophils (%) (Auto) 37 % (31-73) Lymphocytes (%) (Auto) 43 % (24-48) Monocytes (%) (Auto) 9 % (0-9) Eosinophils (%) (Auto) 11 % (0-3) Basophils (%) (Auto) 1 % (0-3) Neutrophils # (Auto) 2.2 x10^3uL (1.8-7.7) Lymphocytes # (Auto) 2.5 x10^3/uL (1.0-4.8) Monocytes # (Auto) 0.5 x10^3/uL (0.0-1.1) Eosinophils # (Auto) 0.6 x10^3/uL (0.0-0.7) Basophils # (Auto) 0.1 x10^3/uL (0.0-0.2) Platelet Estimate Adequate (ADEQUATE) Large Platelets Present Sodium Level 141 mmol/L (136-145) Potassium Level 3.5 mmol/L (3.5-5.1) Chloride Level 105 mmol/L (98-107) Carbon Dioxide Level 26 mmol/L (21-32) Anion Gap 10 (6-14) Blood Urea Nitrogen 6 mg/dL (8-26) Creatinine 1.4 mg/dL (0.7-1.3) Estimated GFR (Cockcroft-Gault) 62.8 BUN/Creatinine Ratio 4 (6-20) Glucose Level 160 mg/dL (70-99) Calcium Level 8.7 mg/dL (8.5-10.1) Total Bilirubin 0.5 mg/dL (0.2-1.0) Aspartate Amino Transf (AST/SGOT) 15 U/L (15-37) Alanine Aminotransferase (ALT/SGPT) 31 U/L (16-63) Alkaline Phosphatase 37 U/L (46-116) Total Protein 7.3 g/dL (6.4-8.2) Albumin 3.2 g/dL (3.4-5.0) Albumin/Globulin Ratio 0.8 (1.0-1.7) Laboratory Tests Test 09/23/18 18:00 09/24/18 09:00 Group A Streptococcus Rapid Negative (NEGATIVE) White Blood Count 5.9 x10^3/uL (4.0-11.0) Red Blood Count 4.42 x10^6/uL (4.30-5.70) Hemoglobin 13.5 g/dL (13.0-17.5) Hematocrit 39.6 % (39.0-53.0) Mean Corpuscular Volume 90 fL (79-100) Mean Corpuscular Hemoglobin 31 pg (25-35) Mean Corpuscular Hemoglobin Concent 34 g/dL (31-37) Red Cell Distribution Width 13.2 % (11.5-14.5) Platelet Count 126 x10^3/uL (140-400) Neutrophils (%) (Auto) 37 % (31-73) Lymphocytes (%) (Auto) 43 % (24-48) Monocytes (%) (Auto) 9 % (0-9) Eosinophils (%) (Auto) 11 % (0-3) Basophils (%) (Auto) 1 % (0-3) Neutrophils # (Auto) 2.2 x10^3uL (1.8-7.7) Lymphocytes # (Auto) 2.5 x10^3/uL (1.0-4.8) Monocytes # (Auto) 0.5 x10^3/uL (0.0-1.1) Eosinophils # (Auto) 0.6 x10^3/uL (0.0-0.7) Basophils # (Auto) 0.1 x10^3/uL (0.0-0.2) Platelet Estimate Adequate (ADEQUATE) Large Platelets Present Sodium Level 141 mmol/L (136-145) Potassium Level 3.5 mmol/L (3.5-5.1) Chloride Level 105 mmol/L (98-107) Carbon Dioxide Level 26 mmol/L (21-32) Anion Gap 10 (6-14) Blood Urea Nitrogen 6 mg/dL (8-26) Creatinine 1.4 mg/dL (0.7-1.3) Estimated GFR (Cockcroft-Gault) 62.8 BUN/Creatinine Ratio 4 (6-20) Glucose Level 160 mg/dL (70-99) Calcium Level 8.7 mg/dL (8.5-10.1) Total Bilirubin 0.5 mg/dL (0.2-1.0) Aspartate Amino Transf (AST/SGOT) 15 U/L (15-37) Alanine Aminotransferase (ALT/SGPT) 31 U/L (16-63) Alkaline Phosphatase 37 U/L (46-116) Total Protein 7.3 g/dL (6.4-8.2) Albumin 3.2 g/dL (3.4-5.0) Albumin/Globulin Ratio 0.8 (1.0-1.7) Brief Hospital Course 23 year old male who presents to the emergency Department with complaints of a productive cough with yellow sputum, fever up to 100, and body aches for the last month. Patient states his symptoms have been worse over the last few days. He denies any nausea, vomiting, diarrhea, ear pain. started on zosyn and doxy. improved after 48 hrs. likely atypical pna. pulm consulted, if no improvement as outpatient then will need further work up. plan for dc with 5 more days of doxy. patient VSS, labs stable at time of dc. need repeat chest xray in 4-6 weeks. Discharge Information Condition at Discharge: Stable Follow Up: Weeks (2-4 weeks with PCP) Disposition/Orders: D/C to Home Scheduled Doxycycline Hyclate (Doxycycline Hyclate) 100 Mg Tablet, 100 MG PO BID for pna for 5 Days, #10 Prescribed by: PRINCE MANCINI MD on 09/24/18 1211 PRINCE MANCINI MD Sep 24, 2018 15:49
== END 2018-09-24 15:12 | disposition home or self-care (01) | DRG 871 ==
LOC: ER 20:47 → 5 NORTH 23:50
PROVIDERS: ADMIT Family Medicine; ATTEND Family Medicine
DX: A41.9 Sepsis, unspecified organism (principal); J18.9 Pneumonia, unspecified organism; F17.210 Nicotine dependence, cigarettes, uncomplicated; J31.0 Chronic rhinitis; Z82.49 Family history of ischemic heart disease and other diseases of the circulatory system
CPT/HCPCS: 36415; 71045; 80053; 80307; 81001; 83605; 85025; 85610; 87040; 87070; 87880; 94640; 94760; 96361; 96365; 96375; J0696; J1650; J2543; J3490; J7030; J7613; J7620; 99285-25

== ENCOUNTER 2019-03-09 18:33 | Emergency (ER) | payer BC ==
[~2019-03-09] VITALS: Ht 162.6 cm; Wt 101.6 kg
[~2019-03-09 18:33] MED LIST: DOXY100T PO
[2019-03-09 20:06] LABS: INFLUENZA A PATIENT NEGATIVE (NEGATIVE); INFLUENZA B PATIENT NEGATIVE (NEGATIVE)
[2019-03-09] MEDS ORDERED: DEXAMETHASONE SOD PHOS 4 MG/ML VIAL IVP ONE (20:15)
[2019-03-09] MEDS ORDERED: IV NORMAL SALINE 1000ML BAG 1,000 ML IV ONE (20:15)
[2019-03-09 20:27] LABS: BASO # 0.1 x10^3/uL (0.0-0.2); BASO % 1 % (0-3); EOS # 0.7 x10^3/uL (0.0-0.7); EOS % 10 % (0-3); HEMATOCRIT 40.5 % (39.0-53.0); LYMPH # 3.1 x10^3/uL (1.0-4.8); LYMPH % 43 % (24-48); MEAN CORPUSCULAR HEMOGLOBIN 30 pg (25-35); MEAN CORPUSCULAR HGB CONC 35 g/dL (31-37); MEAN CORPUSCULAR VOLUME 88 fL (79-100); MONO # 0.7 x10^3/uL (0.0-1.1); MONO % 9 % (0-9); NEUT # 2.7 x10^3/uL (1.8-7.7); NEUT % 37 % (31-73); PLATELET COUNT 160 x10^3/uL (140-400); WHITE BLOOD COUNT 7.3 x10^3/uL (4.0-11.0)
[2019-03-09] MEDS ORDERED: CLINDAMYCIN 900MG PREMIX 50 ML IV ONE (20:30)
[2019-03-09] MEDS ORDERED: IOHEXOL 300 MG/ML 100ML VIAL. IV ONE (20:30)
--- NOTE | 2019-03-09 20:30 | PHYS DOC ---
Past Medical History Past Medical History: No Pertinent History Past Surgical History: No Surgical History Alcohol Use: None Drug Use: None Adult General Chief Complaint Chief Complaint: FLU SYMPTOM HPI HPI Patient is a 23 year old Male who presents with 2 days of fever and throat pain. Patient rates his pain as a 9 out of 10 when he swallows. Patient states when he sitting there does not hurt. Patient states he is having a hard time swelling any kind of food or fluids. Review of Systems Review of Systems Constitutional: fever or chills [] HENT: Denies nasal congestion. + sore throat [] All other systems were reviewed and found to be within normal limits, except as documented in this note. Current Medications Current Medications Current Medications Medications (Trade) Dose Ordered Sig/Alfredo Start Time Stop Time Status Last Admin Dose Admin Clindamycin Phosphate 50 ml @ 100 mls/hr 1X ONCE 03/09/19 20:30 03/09/19 20:59 DC 03/09/19 20:57 100 MLS/HR Dexamethasone Sodium Phosphate (Decadron) 6 mg 1X ONCE 03/09/19 20:15 03/09/19 20:16 DC 03/09/19 20:06 6 MG Iohexol (Omnipaque 300 Mg/ml) 70 ml 1X ONCE 03/09/19 20:30 03/09/19 20:31 DC 03/09/19 20:59 70 ML Sodium Chloride 1,000 ml @ 1,000 mls/hr 1X ONCE 03/09/19 20:15 03/09/19 21:14 DC 03/09/19 20:05 1,000 MLS/HR Allergies Allergies Allergies Coded Allergies Type Severity Reaction Last Updated Verified No Known Drug Allergies 09/22/18 No Physical Exam Physical Exam Constitutional: Well developed, well nourished, no acute distress, non-toxic appearance. [] HENT: Normocephalic, atraumatic, bilateral external ears normal, oropharynx moist, no oral exudates, nose normal. throat reddened with swelling and exudates. Uvula deviation to left. [] Eyes: PERRLA, EOMI, conjunctiva normal, no discharge. [] Neck: Normal range of motion, no tenderness, supple, no stridor. [] Cardiovascular:Heart rate regular rhythm, no murmur [] Lungs & Thorax: Bilateral breath sounds clear to auscultation [] Abdomen: Bowel sounds normal, soft, no tenderness, no masses, no pulsatile masses. [] Skin: Warm, dry, no erythema, no rash. [] Back: No tenderness, no CVA tenderness. [] Extremities: No tenderness, no cyanosis, no clubbing, ROM intact, no edema. [] Neurologic: Alert and oriented X 3, normal motor function, normal sensory function, no focal deficits noted. [] Psychologic: Affect normal, judgement normal, mood normal. [] Current Patient Data Vital Signs Vital Signs Date Time Temp Pulse Resp B/P (MAP) Pulse Ox O2 Delivery O2 Flow Rate FiO2 03/09/19 20:55 63 16 140/60 (86) 95 Room Air 03/09/19 18:45 97.7 97.7 Lab Values Laboratory Tests Test 03/09/19 19:35 03/09/19 20:02 Influenza Type A Antigen Negative (NEGATIVE) Influenza Type B Antigen Negative (NEGATIVE) White Blood Count 7.3 x10^3/uL (4.0-11.0) Red Blood Count 4.60 x10^6/uL (4.30-5.70) Hemoglobin 14.0 g/dL (13.0-17.5) Hematocrit 40.5 % (39.0-53.0) Mean Corpuscular Volume 88 fL (79-100) Mean Corpuscular Hemoglobin 30 pg (25-35) Mean Corpuscular Hemoglobin Concent 35 g/dL (31-37) Red Cell Distribution Width 13.0 % (11.5-14.5) Platelet Count 160 x10^3/uL (140-400) Neutrophils (%) (Auto) 37 % (31-73) Lymphocytes (%) (Auto) 43 % (24-48) Monocytes (%) (Auto) 9 % (0-9) Eosinophils (%) (Auto) 10 % (0-3) H Basophils (%) (Auto) 1 % (0-3) Neutrophils # (Auto) 2.7 x10^3/uL (1.8-7.7) Lymphocytes # (Auto) 3.1 x10^3/uL (1.0-4.8) Monocytes # (Auto) 0.7 x10^3/uL (0.0-1.1) Eosinophils # (Auto) 0.7 x10^3/uL (0.0-0.7) Basophils # (Auto) 0.1 x10^3/uL (0.0-0.2) Sodium Level 139 mmol/L (136-145) Potassium Level 4.0 mmol/L (3.5-5.1) Chloride Level 104 mmol/L (98-107) Carbon Dioxide Level 27 mmol/L (21-32) Anion Gap 8 (6-14) Blood Urea Nitrogen 16 mg/dL (8-26) Creatinine 1.3 mg/dL (0.7-1.3) Estimated GFR (Cockcroft-Gault) 68.4 BUN/Creatinine Ratio 12 (6-20) Glucose Level 106 mg/dL (70-99) H Calcium Level 8.7 mg/dL (8.5-10.1) Total Bilirubin 0.4 mg/dL (0.2-1.0) Aspartate Amino Transferase (AST) 15 U/L (15-37) Alanine Aminotransferase (ALT) 23 U/L (16-63) Alkaline Phosphatase 41 U/L (46-116) L Total Protein 8.1 g/dL (6.4-8.2) Albumin 3.5 g/dL (3.4-5.0) Albumin/Globulin Ratio 0.8 (1.0-1.7) L Laboratory Tests 03/09/19 20:02 Laboratory Tests 03/09/19 20:02 EKG EKG [] Radiology/Procedures Radiology/Procedures [] Impressions: [facility] [address] [place], [place] [id number] IMAGING REPORT Signed PATIENT: ОЛЬГА CROOKS ACCOUNT: [id number] : 1995 LOCATION: ER AGE: 23 SEX: M EXAM STATUS: REG ER ORD. PHYSICIAN: KARLEY TRAVIS APRN REASON: swollen tonsils, uvula deviation, fever OMNI 300, 70 ML IV PROCEDURE: CT SOFT TISSUE NECK W/CONTRAST STUDY: CT soft tissue neck with contrast INDICATION: Swollen tonsils. Uvula deviation. Fever. COMPARISON: None. TECHNIQUE: Axial CT imaging of the neck performed after the intravenous administration of 70 cc Omnipaque 300. Coronal and sagittal reformats were obtained. One or more of the following individualized dose reduction techniques were utilized for this examination: 1. Automated exposure control 2. Adjustment of the mA and/or kV according to patient size 3. Use of iterative reconstruction technique. FINDINGS: Prominent palatine tonsils as well as prominent adenoids. No peritonsillar abscess. Normal configuration of the epiglottis. The palatine tonsils contact the uvula. The airway is narrowed as seen on image 60 series 2 measuring as little as 6 mm. No inflammatory changes of the deep spaces of the neck. No prevertebral edema. Scattered prominent cervical chain lymph nodes such as seen on the left just anterior to the sternocleidomastoid likely reactive. Right thyroid nodule measuring at 1.1 cm. Residual thymic tissue. Left upper lung nodule on image 7 series 2 measuring 4 mm. Mild maxillary sinus mucosal thickening. Scattered ethmoidal air cell opacification. Normal aeration of the frontal sinus and sphenoid sinus. Normally aerated mastoid air cells and middle ears. Dental caries of the first maxillary and mandibular molars on the left. IMPRESSION: 1. Enlarged palatine tonsils more so than adenoids. The palatine tonsils are seen to contact the uvula and there is narrowing of the airway measuring as little as 6 mm - recommend clinical correlation for any signs of respiratory distress. No peritonsillar abscess. Reactive cervical chain lymph nodes. Unremarkable epiglottis. 2. Right thyroid lobe nodule measuring 1.1 cm. Follow-up could be performed with sonography considering this nodule measures over 1 cm and the patient is less than 35 years old. 3. Left upper lobe pulmonary nodule measuring 4 mm. This is statistically likely to be benign and per Fleischner criteria follow-up is not necessary unless there are risk factors for lung malignancy. If this is the case, optional CT in 12 months could be performed. 4. Left first maxillary and mandibular molar dental caries. Electronically signed by: RYAN LUO MD (03/09/2019 9:12 PM) [facility] DICTATED and SIGNED BY: RYAN LUO MD DATE: 03/09/192111 Course & Med Decision Making Course & Med Decision Making 2+ tonsillar swelling with redness and exudates. Lungs are clear to auscultation all lobes. Uvula deviation to the left. Rapid strep is positive. Vital signs wnl. Alert and oriented. Speaks in full clear sentences but his voice does seem "Hot [place]". Skin is pink warm and dry. Ambulatory with steady gait. Bilateral tympanic reddened. No respiratory distress. CT NECK IMPRESSION: 1. Enlarged palatine tonsils more so than adenoids. The palatine tonsils are seen to contact the uvula and there is narrowing of the airway measuring as little as 6 mm - recommend clinical correlation for any signs of respiratory distress. No peritonsillar abscess. Reactive cervical chain lymph nodes. Unremarkable epiglottis. 2. Right thyroid lobe nodule measuring 1.1 cm. Follow-up could be performed with sonography considering this nodule measures over 1 cm and the patient is less than 35 years old. 3. Left upper lobe pulmonary nodule measuring 4 mm. This is statistically likely to be benign and per Fleischner criteria follow-up is not necessary unless there are risk factors for lung malignancy. If this is the case, optional CT in 12 months could be performed. 4. Left first maxillary and mandibular molar dental caries. Patient received Decadron in the ED. I have gone over the findings with Dr Lemons and he states to send him home on antibiotics and steroids. Dragon Disclaimer Dragon Disclaimer This electronic medical record was generated, in whole or in part, using a voice recognition dictation system. Departure Departure Impression: Primary Impression: Strep throat Disposition: 01 HOME, SELF-CARE Condition: STABLE Referrals: NO PCP (PCP) Patient Instructions: Strep Throat Additional Instructions: Follow up with primary care. Take medications as prescribed. Drink plenty of fluids. Scripts Amoxicillin (AMOXICILLIN) 500 Mg Capsule 1 CAP PO BID, #20 CAP Prov: KARLEY TRAVIS TRANSLATOR AND INTERPRETER 03/09/19 Methylprednisolone (MEDROL) 4 Mg Tab.ds.pk 1 PKG PO UD, #1 PKG Prov: KARLEY TRAVIS TRANSLATOR AND INTERPRETER 03/09/19 KARLEY TRAVIS APRN Mar 09, 2019 20:30
[2019-03-09 20:35] LABS: CALCIUM 8.7 mg/dL (8.5-10.1); CREATININE 1.3 mg/dL (0.7-1.3); GFR 68.4
[2019-03-09 20:43] LABS: ALBUMIN 3.5 g/dL (3.4-5.0); ALBUMIN/GLOBULIN RATIO 0.8 (1.0-1.7); TOTAL BILIRUBIN 0.4 mg/dL (0.2-1.0); TOTAL PROTEIN 8.1 g/dL (6.4-8.2)
--- NOTE | 2019-03-09 21:15 | RAD ---
STUDY: CT soft tissue neck with contrast INDICATION: Swollen tonsils. Uvula deviation. Fever. COMPARISON: None. TECHNIQUE: Axial CT imaging of the neck performed after the intravenous administration of 70 cc Omnipaque 300. Coronal and sagittal reformats were obtained. One or more of the following individualized dose reduction techniques were utilized for this examination: 1. Automated exposure control 2. Adjustment of the mA and/or kV according to patient size 3. Use of iterative reconstruction technique. FINDINGS: Prominent palatine tonsils as well as prominent adenoids. No peritonsillar abscess. Normal configuration of the epiglottis. The palatine tonsils contact the uvula. The airway is narrowed as seen on image 60 series 2 measuring as little as 6 mm. No inflammatory changes of the deep spaces of the neck. No prevertebral edema. Scattered prominent cervical chain lymph nodes such as seen on the left just anterior to the sternocleidomastoid likely reactive. Right thyroid nodule measuring at 1.1 cm. Residual thymic tissue. Left upper lung nodule on image 7 series 2 measuring 4 mm. Mild maxillary sinus mucosal thickening. Scattered ethmoidal air cell opacification. Normal aeration of the frontal sinus and sphenoid sinus. Normally aerated mastoid air cells and middle ears. Dental caries of the first maxillary and mandibular molars on the left. IMPRESSION: 1. Enlarged palatine tonsils more so than adenoids. The palatine tonsils are seen to contact the uvula and there is narrowing of the airway measuring as little as 6 mm - recommend clinical correlation for any signs of respiratory distress. No peritonsillar abscess. Reactive cervical chain lymph nodes. Unremarkable epiglottis. 2. Right thyroid lobe nodule measuring 1.1 cm. Follow-up could be performed with sonography considering this nodule measures over 1 cm and the patient is less than 35 years old. 3. Left upper lobe pulmonary nodule measuring 4 mm. This is statistically likely to be benign and per Fleischner criteria follow-up is not necessary unless there are risk factors for lung malignancy. If this is the case, optional CT in 12 months could be performed. 4. Left first maxillary and mandibular molar dental caries. Electronically signed by: RYAN LUO MD (03/09/2019 9:12 PM) [facility]
[2019-03-09 22:03] VITALS: BP 114/69
[2019-03-09] MEDS ORDERED: METH4TAB2 PO (22:09)
[2019-03-09] MEDS ORDERED: AMOX500C PO (22:09)
== END 2019-03-09 22:15 | disposition home or self-care (01) ==
LOC: ER 18:33
DX: J02.0 Streptococcal pharyngitis (principal); B95.0 Streptococcus, group A, as the cause of diseases classified elsewhere
CPT/HCPCS: 36415; 70491; 80053; 85025; 87804; 87880; 96365; 96375; 99285; J1100; J3490; J7030; Q9967

== ENCOUNTER 2020-03-19 23:50 | Emergency (ER) | payer BC ==
[~2020-03-19] VITALS: Ht 162.6 cm; Wt 91.0 kg
[~2020-03-19 23:50] MED LIST changes: +AMOX500C PO; +METH4TAB2 PO
[2020-03-19 23:54] VITALS: BP 106/59
--- NOTE | 2020-03-20 01:31 | PHYS DOC ---
Past Medical History Past Medical History: No Pertinent History Past Surgical History: No Surgical History Smoking Status: Never Smoker Additional Information: Pt uses a vape pen Alcohol Use: None Drug Use: None General Adult EDM: Chief Complaint: GENERALIZED BODY ACHES HPI: HPI: 44-year-old male who denies any past medical history presents the ED with complaints of subjective fever and chills and body aches with some mild headache that started on after he was exposed to a friend 5 days prior who tested positive for Covid. Influenza vaccine is not up-to-date. Works at [employer]. Is not a tobacco smoker. No known drug allergies. Is tolerating food and drink. Review of Systems: Review of Systems: Constitutional: Denies lack of taste or smell Eyes: Denies change in visual acuity or eye drainage or red eye HENT: Denies nasal congestion or sore throat. [] Respiratory: Denies cough or shortness of breath. [] Cardiovascular: Denies chest pain or edema. [] GI: Denies abdominal pain, nausea, vomiting, bloody stools or diarrhea. [] : Denies dysuria or hematuria Musculoskeletal: Denies back pain or joint pain. [] Integument: Denies rash or diaphoresis Neurologic: Denies neck stiffness, focal weakness or sensory changes. [] Endocrine: Denies polyuria or polydipsia. [] Lymphatic: Denies swollen glands. [] Psychiatric: Denies depression or anxiety. [] Heart Score: Risk Factors: Risk Factors: DM, Current or recent (<one month) smoker, HTN, HLP, family history of CAD, obesity. Risk Scores: Score 0 - 3: 2.5% MACE over next 6 weeks - Discharge Home Score 4 - 6: 20.3% MACE over next 6 weeks - Admit for Clinical Observation Score 7 - 10: 72.7% MACE over next 6 weeks - Early Invasive Strategies Allergies: Allergies: Allergies Coded Allergies Type Severity Reaction Last Updated Verified No Known Drug Allergies 09/22/18 No Physical Exam: PE: Constitutional: Well developed, well nourished, no acute distress, non-toxic appearance. HENT: Normocephalic, atraumatic, Eyes: EOMI, conjunctiva normal, no discharge. Neck: Normal range of motion, supple, Cardiovascular: S1/2 present, regular rhythm Lungs & Thorax: Speaking in full sentences, bilateral equal chest rise, no tachypnea or increased work of breathing Abdomen: soft, no tenderness, Skin: Warm, dry, no erythema, no rash. [] Back: No tenderness, no CVA tenderness. [] Extremities: No tenderness, no cyanosis, no edema Neurologic: Alert and oriented X 3, normal motor function, normal sensory function, no focal deficits noted. [] Psychologic: Affect normal, judgement normal, mood normal. [] Current Patient Data: Vital Signs: Vital Signs Date Time Temp Pulse Resp B/P (MAP) Pulse Ox O2 Delivery O2 Flow Rate FiO2 03/19/20 23:54 98.3 82 18 106/59 (75) 99 Room Air 98.3 EKG: EKG: [] Radiology/Procedures: Radiology/Procedures: [] Course & Med Decision Making: Course & Med Decision Making Pertinent Labs and Imaging studies reviewed. (See chart for details) COVID-19 CRITERIA: The patient was evaluated during the global COVID-19 pandemic, and that diagnosis was suspected/considered upon their initial presentation. Their evaluation, treatment and testing was consistent with current guidelines for patients who present with complaints or symptoms that may be related to COVID-19. Concern for PUI in well-appearing male. HD stable-afebrile in ed. Talking in full sentences. Will discharge home with strict ED return precautions were given for chest pain, dyspnea, increased work of breathing or stroke symptoms. Encouraged urgent outpatient follow-up with PMD. Life-threatening processes were considered but are low suspicion at this time, given history, physical exam and ED workup. Pt was educated on all prescription medications and adverse effects. All patient's questions were answered and pt was stable at time of discharge. Life/limb-threatening differential includes but is not limited to, surgical abdomen (appendicitis, cholecystitis, diverticulitis, inflammatory bowel disease, abscess, perforation), meningitis, encephalitis, Mihai's angina, endocarditis, myocarditis, life-threatening rash (necrotizing fasciitis), gynecologic and urologic emergencies (endometritis, ovarian/testicular torsion, TOA, obstructive nephropathy, prostatitis), head and neck abscess, infection concerning for sepsis or shock, or respiratory failure. I spoken with the patient and her caregivers. I explained the patient's condition, diagnoses and treatment plan based on the information available to me at this time. I have answered the patient and her caregiver's questions and addressed any concerns. The patient and her caregivers have a good understanding of patient's diagnosis, condition and treatment plan as can be expected at this point. Vital signs have been stable. Patient's condition is stable and appropriate for discharge from the emergency department. Patient will pursue further outpatient evaluation with primary care physician or other designated or consulting physician as outlined in the discharge instructions. The patient and/or caregivers are agreeable to this plan of care and follow-up instructions have been explained in detail. The patient and/or caregivers have received these instructions in written form and have expressed a n understanding of the discharge instructions. The patient and/or caregivers are aware that any significant change of condition or worsening of symptoms should prompt immediate return to this or the closest emergency department or call to 911. Sue Disclaimer: Sue Disclaimer: This electronic medical record was generated, in whole or in part, using a voice recognition dictation system. Departure Departure Impression: Primary Impression: Person under investigation for COVID-19 Additional Impression: Myalgia Disposition: 01 DC HOME SELF CARE/HOMELESS Condition: STABLE Referrals: NO PCP (PCP) FOLLOW UP WITH FAMILY MEDICINE: Family Medicine Address: [address] [place] [address], [address] [address] Patient Instructions: Fever of Unknown Origin Additional Instructions: Return to ED immediately if your oxygen level drops below 90% (purchase a pulse oximetry at a medical supply store), difficulties breathing including rapid breathing or increased work of breathing (skin sucking under ribs), chest pain or stroke-like symptoms (facial droop, speech changes, arm/leg weaness). You have been tested for or diagnosed with COVID-19. It is an infection caused by a new type of coronavirus. COVID-19 will cause cold-like or mild flu symptoms in most. It can cause more severe symptoms like problems breathing in some. There is no treatment for COVID-19. The body will clear the infection over time. Self-care will help to ease discomfort. Steps to Take: Self-Care Rest as needed. Healthy habits may help you feel better. Steps include: Choose healthy foods including fruits and vegetables. Drink water throughout the day. Get plenty of sleep each night. If you smoke, try to quit. It may ease breathing. Avoid alcohol. Keep Others Healthy The virus can spread to others. Droplets are released every time you sneeze or cough. The droplets can get into the mouth, nose, or eyes of people near you and lead to infection. To lower the chances of spreading COVID-19 to others: Stay at home until your doctor has said it is safe to leave. If you tested positive this will mean staying isolated until both of the following are true: At least 7 days have passed since the start of illness. You are free of fever for at least 72 hours without the use of medicine. During this time: - Avoid public areas, events, or transportation. Do not return to work or school until your doctor has said it is safe to do so. - Call ahead if you need to go to a medical center. Let them know you may have COVID-19. It will help them guide you where to go. They may also ask you to wear a facemask when you come to the office. - If you call for emergency medical services, let them know you may have COVID- 19. While at home: - Try to avoid close contact with others. Stay about 6 feet away. - If possible, spend most of your time in a separate room from others. - Use a face mask if you will be in close contact with others such as sharing a room or vehicle. - Have someone wipe down common surfaces in the home. Use household risk prevention engineer every day on areas like doorknobs, counters, or sinks. - Cough or sneeze into a tissue. Throw the tissue away right after use. If a tissue is not available, cough or sneeze into your elbow. - Wash your hands often. Wash them after sneezing or coughing. Use soap and water and wash for at least 20 seconds. Alcohol based hand domestic cleaner can be used if soap and water is not available. - Do not prepare food for others. Avoid sharing personal items like forks, spoons, or toothbrushes. - Avoid close contact with pets while you are sick. There is no evidence of the virus passing to pets. This is a safety step until more is known about this virus. Isolation can be frustrating. Social interaction can help. Keep in touch with friends and family through phone and tech options. You can still interact with others in your home, just keep a safe distance of about 6 feet. Follow-up: Your doctors office will check in with you to see if there are any changes in your health. You may be asked to keep track of symptoms to share with them. They will also let you know when you are clear to be in public again. Problems to Look Out For: Contact your doctor if your recovery is not going as you expect. Get emergency care if you have problems such as: - Trouble breathing - Nonstop chest pain or pressure - Changes in awareness, confusion, or problems waking - Lips or face have bluish color - Worsening of symptoms If you think you have an emergency, call for emergency medical services right away. As taken from [facility],YVETTE Canada DO Mar 20, 2020 01:30
== END 2020-03-20 01:42 | disposition home or self-care (01) ==
LOC: ER 23:50
DX: R50.9 Fever, unspecified (principal); Z20.828 Contact with and (suspected) exposure to other viral communicable diseases; R51.9 Headache, unspecified; M79.10 Myalgia, unspecified site
CPT/HCPCS: 99283; U0003; C9803